=== PATIENT | female | born 1935 | race Caucasian/White ===

== ENCOUNTER 2017-05-18 15:38 | Inpatient (IN) | payer MEDICARE, OTHER ==
[~2017-05-18] VITALS: Ht 165.1 cm; Wt 59.9 kg
[2017-05-18 16:51] LABS: Basophils # (auto) 0 uL; Basophils % (auto) 0.6 % (0.0-2.0); Eosinophils # (auto) 0 uL; Hematocrit 42.1 % (36.0-46.0); Hemoglobin 14.4 g/dL (12.2-16.2); Lymphocytes # (auto) 0.4 uL; Lymphocytes % (auto) 4.6 % (10.0-50.0); Mean Corpuscular Hemoglobin 32.5 pg (28.0-32.0); Mean Corpuscular Hgb Conc. 34.2 g/dL (32.0-36.0); Monocytes # (auto) 0.8 uL; Monocytes % (auto) 10.4 % (0.0-12.0); Neutrophils # (auto) 6.8 uL; Neutrophils % (auto) 84.4 % (37.0-80.0); Platelet Count (auto) 172 10^3/uL (140-450); Red Blood Cells 4.43 10^6/uL (4.0-5.20); Red Cell Distribution Width 14.6 % (11.8-14.3); White Blood Cell 8.1 10^3/uL (4.4-10.8)
[2017-05-18] MEDS ORDERED: ACETAMINOPHEN 325 MG TAB PO ONE ×2 (17:09→17:15)
[2017-05-18] MEDS ORDERED: SODIUM CHLORIDE 0.9% 1,000 ML IV ONE (17:15)
[2017-05-18 17:17] LABS: Alanine Aminotransferase 71 U/L (13-56); Albumin 3.2 g/dL (3.4-5.0); Anion Gap 10 (5-15); Aspartate Aminotransferase 212 U/L (15-37); BUN/Creatinine Ratio 16.9; Blood Urea Nitrogen 13 mg/dL (7-18); Calcium 8.3 mg/dL (8.5-10.1); Carbon Dioxide 26 mmol/L (21-32); Chloride 99 mmol/L (98-107); GFR African American 93 mL/min; GFR Non-African American 77 mL/min; Glucose 102 mg/dL (74-106); Potassium 3.3 mmol/L (3.5-5.1); Sodium 135 mmol/L (136-145)
[2017-05-18 17:22] LABS: Alkaline Phosphatase 60 U/L (45-117); Bilirubin, Total 0.6 mg/dL (0.2-1.0); Total Protein 7.2 g/dL (6.4-8.2)
[2017-05-18] MEDS ORDERED: MEMA28CA PO (17:28)
[2017-05-18] MEDS ORDERED: VALS80TA44 PO (17:28)
[2017-05-18 18:07] LABS: Amylase 84 U/L (25-115); Lipase 134 U/L (73-393)
[2017-05-18 19:05] LABS: Urine Bacteria NONE SEEN /hpf (None Seen); Urine Blood 1+ /uL (Negative); Urine Mucus FEW (None Seen); Urine Specific Gravity 1.018 (1.001-1.035); Urine WBC 1 /hpf (0 - 5)
[2017-05-18] MEDS ORDERED: SODIUM CHLORIDE 0.9% 1,000 ML IV SCH (23:16)
[2017-05-18] MEDS ORDERED: LEVOFLOXACIN 500MG 100 ML IV ONE (23:30)
[2017-05-18] MEDS ORDERED: MORPHINE SULF INJ 2 MG/ML SYRINGE 1ML IV PRN (23:30)
[2017-05-18] MEDS ORDERED: ONDANSETRON HCL 4 MG/2 ML VIAL IV PRN (23:30)
[2017-05-18] MEDS ORDERED: NITROGLYCERIN 0.4 MG SL TAB SL PRN (23:30)
[2017-05-18] MEDS ORDERED: HYDROcodone-ACET 5/325MG TAB PO PRN (23:30)
[2017-05-18] MEDS ORDERED: TEMAZEPAM 15 MG CAP PO PRN (23:30)
[2017-05-19] VITALS (8 sets, daily range): BP systolic 109–133; BP diastolic 62–70
[2017-05-19] MEDS: LEVOTHYROXINE SODIUM 25 MCG TAB PO SCH (06:33)
[2017-05-19] MEDS: ALBUTEROL SULF 2.5 MG/0.5ML(0.5%) NEB SOLN NEB PRN ×2 (06:41→13:38)
[2017-05-19] MEDS: IPRATROPIUM BROM 0.5 MG/2.5ML INH SOL NEB PRN ×2 (06:41→13:38)
[2017-05-19 06:42] LABS: Basophils # (auto) 0 uL; Basophils % (auto) 0.2 % (0.0-2.0); Eosinophils # (auto) 0 uL; Hematocrit 39.4 % (36.0-46.0); Hemoglobin 13.4 g/dL (12.2-16.2); Lymphocytes # (auto) 0.5 uL; Lymphocytes % (auto) 7.6 % (10.0-50.0); Mean Corpuscular Hemoglobin 32.5 pg (28.0-32.0); Mean Corpuscular Volume 95.6 fL (80.0-100.0); Monocytes # (auto) 0.8 uL; Monocytes % (auto) 12.8 % (0.0-12.0); Neutrophils # (auto) 4.8 uL; Neutrophils % (auto) 79.4 % (37.0-80.0); Nucleated Red Blood Cells % 0.3 %; Platelet Count (auto) 161 10^3/uL (140-450); Red Blood Cells 4.12 10^6/uL (4.0-5.20); White Blood Cell 6.1 10^3/uL (4.4-10.8)
[2017-05-19 07:05] LABS: Albumin 2.9 g/dL (3.4-5.0); BUN/Creatinine Ratio 22.7; Calcium 8.4 mg/dL (8.5-10.1); Potassium 3.1 mmol/L (3.5-5.1)
[2017-05-19 07:08] LABS: Bilirubin, Total 0.7 mg/dL (0.2-1.0); Total Protein 6.3 g/dL (6.4-8.2)
[2017-05-19] MEDS ORDERED: LEVO25TA6 PO (07:26)
[2017-05-19] MEDS ORDERED: NAMENDA XR 28MG PO SCH (10:00)
[2017-05-19] MEDS: MEMANTINE HCL 5 MG TAB PO SCH ×2 (10:48→22:30)
[2017-05-19] MEDS: VALSARTAN 80 MG TAB PO SCH (10:49)
[2017-05-19] MEDS: HCTZ 25 MG TAB PO SCH (10:51)
[2017-05-19] MEDS: FAMOTIDINE 20 MG TAB PO SCH ×2 (10:52→22:29)
[2017-05-19] MEDS: ENOXAPARIN SOD 40 MG/0.4 ML SYRINGE SC SCH (10:59)
[2017-05-19] MEDS: ACETAMINOPHEN 325 MG TAB PO PRN (11:19)
[2017-05-19] MEDS ORDERED: IBUPROFEN 400 MG TAB PO PRN (12:15)
[2017-05-19] MEDS ORDERED: POLYETHYLENE GLYCOL 17 GM PWDR PO ONE (13:15)
[2017-05-19] MEDS: POTASSIUM CHL 10% (20 MEQ/15ML) 15ml ORAL SOLN PO SCH ×2 (14:00→15:56)
[2017-05-19] MEDS: ALBUTEROL SULF 2.5 MG/0.5ML(0.5%) NEB SOLN NEB SCH ×2 (18:15→22:50)
[2017-05-19] MEDS ORDERED: LEVOFLOXACIN 500MG 100 ML IV SCH (22:00)
[2017-05-19] MEDS ORDERED: DOCUSATE SOD 100 MG CAP PO SCH (22:00)
[2017-05-19] MEDS ORDERED: POTASSIUM CHL 10% (20 MEQ/15ML) 15ml ORAL SOLN PO SCH (22:00)
[2017-05-19] MEDS: DOCUSATE ORAL LIQUID 100 MG/10 ML UD PO SCH (22:30)
[2017-05-19] MEDS: DONEPEZIL HYDROCHLORIDE 5 MG TAB PO SCH (22:30)
[2017-05-20] MEDS: ALBUTEROL SULF 2.5 MG/0.5ML(0.5%) NEB SOLN NEB SCH ×6 (02:47→22:08)
[2017-05-20] MEDS: IPRATROPIUM BROM 0.5 MG/2.5ML INH SOL NEB PRN (03:02)
[2017-05-20 05:00] VITALS: BP 113/61
[2017-05-20] MEDS: LEVOTHYROXINE SODIUM 25 MCG TAB PO SCH (06:27)
[2017-05-20] MEDS: ACETAMINOPHEN 325 MG TAB PO PRN ×2 (06:38→21:42)
[2017-05-20 07:10] LABS: Basophils # (auto) 0 uL; Basophils % (auto) 0.2 % (0.0-2.0); Eosinophils # (auto) 0 uL; Hematocrit 35.2 % (36.0-46.0); Hemoglobin 11.9 g/dL (12.2-16.2); Lymphocytes # (auto) 0.5 uL; Lymphocytes % (auto) 6.6 % (10.0-50.0); Mean Corpuscular Hemoglobin 32.2 pg (28.0-32.0); Mean Corpuscular Hgb Conc. 33.9 g/dL (32.0-36.0); Monocytes # (auto) 0.5 uL; Monocytes % (auto) 5.7 % (0.0-12.0); Neutrophils # (auto) 6.9 uL; Neutrophils % (auto) 87.5 % (37.0-80.0); Nucleated Red Blood Cells % 0.1 %; Platelet Count (auto) 153 10^3/uL (140-450); Red Cell Distribution Width 14.1 % (11.8-14.3); White Blood Cell 7.9 10^3/uL (4.4-10.8)
[2017-05-20 07:27] LABS: Potassium 3.7 mmol/L (3.5-5.1)
[2017-05-20 07:30] LABS: Calcium 8.2 mg/dL (8.5-10.1); Magnesium 2.1 mg/dL (1.6-2.6)
[2017-05-20 09:17] VITALS: BP 105/61
[2017-05-20] MEDS: DOCUSATE ORAL LIQUID 100 MG/10 ML UD PO SCH ×2 (10:00→21:41)
[2017-05-20] MEDS: VALSARTAN 80 MG TAB PO SCH (10:09)
[2017-05-20] MEDS: HCTZ 25 MG TAB PO SCH (10:11)
[2017-05-20] MEDS: ENOXAPARIN SOD 40 MG/0.4 ML SYRINGE SC SCH (10:12)
[2017-05-20] MEDS: MEMANTINE HCL 5 MG TAB PO SCH ×2 (10:12→21:42)
[2017-05-20] MEDS: FAMOTIDINE 20 MG TAB PO SCH ×2 (10:12→21:42)
[2017-05-20 12:08] VITALS: BP 103/63
[2017-05-20] MEDS ORDERED: POLYETHYLENE GLYCOL 17 GM PWDR PO PRN (13:15)
[2017-05-20] MEDS: OSELTAMIVIR 75 MG CAP PO SCH ×2 (13:42→21:41)
[2017-05-20 17:17] VITALS: BP 109/60
[2017-05-20] MEDS: DONEPEZIL HYDROCHLORIDE 5 MG TAB PO SCH (21:42)
[2017-05-20 22:00] VITALS: BP 111/59
== END 2017-05-20 23:15 | DRG 152 ==
LOC: ER 15:38 → EDBD 15:38 → TELE 15:39 → TELE-EAST 05-19 01:11
PROVIDERS: ADMIT Nurse Practitioner; ATTEND Internal Medicine
DX: J11.1 Influenza due to unidentified influenza virus with other respiratory manifestations (principal); J96.01 Acute respiratory failure with hypoxia; F03.90 Unspecified dementia, unspecified severity, without behavioral disturbance, psychotic disturbance, mood disturbance, and anxiety; J20.9 Acute bronchitis, unspecified; I10 Essential (primary) hypertension; E03.9 Hypothyroidism, unspecified; R53.81 Other malaise; K59.00 Constipation, unspecified; Z82.49 Family history of ischemic heart disease and other diseases of the circulatory system; Z86.73 Personal history of transient ischemic attack (TIA), and cerebral infarction without residual deficits
CPT/HCPCS: 36415; 36600; 51702; 71045; 74176; 80048; 80053; 81001; 82150; 82805; 83605; 83690; 83735; 83880; 84484; 85025; 87040; 87086; 87400; 93005; 94640; 96361; 96365; 97163; J1956

== ENCOUNTER 2017-05-24 14:55 | Inpatient (IN) | payer OTHER ==
[~2017-05-24] VITALS: Ht 165.1 cm; Wt 51.5 kg
[~2017-05-24 14:55] MED LIST: LEVO25TA6 PO; MEMA28CA PO; VALS80TA44 PO
[2017-05-24] MEDS ORDERED: SODIUM CHLORIDE 0.9% 1,000 ML IV ONE (16:30)
[2017-05-24 17:21] LABS: Basophils # (auto) 0.1 uL; Basophils % (auto) 0.4 % (0.0-2.0); Eosinophils # (auto) 0 uL; Hemoglobin 11.9 g/dL (12.2-16.2); Lymphocytes # (auto) 0.8 uL; Lymphocytes % (auto) 5.3 % (10.0-50.0); Mean Corpuscular Hemoglobin 31.4 pg (28.0-32.0); Mean Corpuscular Hgb Conc. 33.2 g/dL (32.0-36.0); Mean Corpuscular Volume 94.8 fL (80.0-100.0); Monocytes # (auto) 1.1 uL; Monocytes % (auto) 7.2 % (0.0-12.0); Neutrophils # (auto) 13.6 uL; Neutrophils % (auto) 87.1 % (37.0-80.0); Platelet Count (auto) 391 10^3/uL (140-450); Red Cell Distribution Width 14.3 % (11.8-14.3); White Blood Cell 15.7 10^3/uL (4.4-10.8)
[2017-05-24 17:44] LABS: Alanine Aminotransferase 27 U/L (13-56); Albumin 2.1 g/dL (3.4-5.0); Alkaline Phosphatase 73 U/L (45-117); Anion Gap 15 (5-15); Aspartate Aminotransferase 24 U/L (15-37); BUN/Creatinine Ratio 28.2; Bilirubin, Total 0.8 mg/dL (0.2-1.0); Blood Urea Nitrogen 22 mg/dL (7-18); Carbon Dioxide 22 mmol/L (21-32); Chloride 102 mmol/L (98-107); GFR African American 91 mL/min; GFR Non-African American 76 mL/min; Glucose 107 mg/dL (74-106); Magnesium 2.2 mg/dL (1.6-2.6); Sodium 139 mmol/L (136-145); Total Protein 6.4 g/dL (6.4-8.2)
[2017-05-24 17:56] LABS: Potassium 2.8 mmol/L (3.5-5.1)
[2017-05-24] MEDS ORDERED: AZITHROMYCIN 500MG/ 250ML 250 ML IV ONE (18:15)
[2017-05-24] MEDS ORDERED: cefTRIAXone 1GM/10ml IVPUSH 10 ML IV ONE (18:15)
[2017-05-24] MEDS ORDERED: POTASSIUM CHL 10% (20 MEQ/15ML) 15ml ORAL SOLN PO ONE (18:30)
[2017-05-24 18:54] LABS: Urine Specific Gravity 1.027 (1.001-1.035)
[2017-05-24 18:55] LABS: Urine Blood 2+ /uL (Negative)
[2017-05-24 19:14] LABS: Alcohol, Urine < 3.0 mg/dL (0-5); Amphetamine Screen, Urine NEGATIVE (NEGATIVE); Barbiturate Scree,Urine NEGATIVE (NEGATIVE); Benzodiazephine Screen, Urine NEGATIVE (NEGATIVE); Cannabinoid Screen, Urine NEGATIVE (NEGATIVE); Cocaine Screen, Urine NEGATIVE (NEGATIVE); Opiate Scree,Urine NEGATIVE (NEGATIVE); Phencyclidine Screen, Urine NEGATIVE (NEGATIVE)
[2017-05-24 19:28] LABS: Urine WBC 5 /hpf (0 - 5); Urine WBC Clumps FEW /hpf (None Seen)
[2017-05-24 19:30] LABS: Urine Bacteria 1+ /hpf (None Seen); Urine Mucus 2+ (None Seen)
[2017-05-24] MEDS ORDERED: HYDROcodone-ACET 5/325MG TAB PO PRN (19:30)
[2017-05-24] MEDS ORDERED: ALUM & MAG HYDROX-SIMETH LIQ(MAALOX) 30 ML PO PRN (19:30)
[2017-05-24] MEDS ORDERED: MORPHINE SULFATE 10 MG/ML INJ 1ML SDV IV PRN ×2 (19:30)
[2017-05-24] MEDS ORDERED: DOCUSATE SOD 100 MG CAP PO PRN (19:30)
[2017-05-24] MEDS ORDERED: LORazepam 0.5 MG TAB PO PRN (19:30)
[2017-05-24] MEDS ORDERED: ACETAMINOPHEN 325 MG TAB PO PRN (19:30)
[2017-05-24] MEDS ORDERED: METOCLOPRAMIDE HCL 5MG/ml INJ 2ml VIAL IV PRN (19:30)
[2017-05-24] MEDS ORDERED: ONDANSETRON HCL 4 MG/2 ML VIAL IV PRN (19:30)
[2017-05-24] MEDS ORDERED: POTASSIUM CHL 20MEQ/50ML 50 ML IV SCH (19:30)
[2017-05-24] MEDS ORDERED: NITROGLYCERIN 0.4 MG SL TAB SL PRN (19:30)
[2017-05-24 19:31] LABS: Urine Hyaline Cast FEW /lpf (0 - 2)
[2017-05-24] MEDS ORDERED: PIPERACILLIN-TAZOB 3.375GM 50 ML IV ONE (19:45)
[2017-05-24] MEDS: SODIUM CHLORIDE 0.9% 1,000 ML IV SCH (21:05)
[2017-05-24] MEDS: POTASSIUM CHL 20MEQ/50ML 50 ML IV SCH ×2 (21:05→22:14)
[2017-05-25 05:25] LABS: Basophils # (auto) 0 uL; Basophils % (auto) 0.3 % (0.0-2.0); Eosinophils # (auto) 0 uL; Eosinophils % (auto) 0.3 % (0.0-7.0); Hematocrit 36.6 % (36.0-46.0); Hemoglobin 12.4 g/dL (12.2-16.2); Lymphocytes # (auto) 0.7 uL; Lymphocytes % (auto) 6.1 % (10.0-50.0); Mean Corpuscular Hemoglobin 31.9 pg (28.0-32.0); Mean Corpuscular Hgb Conc. 33.8 g/dL (32.0-36.0); Mean Corpuscular Volume 94.6 fL (80.0-100.0); Monocytes % (auto) 8.3 % (0.0-12.0); Neutrophils # (auto) 10.1 uL; Platelet Count (auto) 381 10^3/uL (140-450); Red Blood Cells 3.87 10^6/uL (4.0-5.20); Red Cell Distribution Width 14.3 % (11.8-14.3); White Blood Cell 11.9 10^3/uL (4.4-10.8)
[2017-05-25 05:51] LABS: Albumin 1.8 g/dL (3.4-5.0); Bilirubin, Total 0.6 mg/dL (0.2-1.0); Calcium 8.3 mg/dL (8.5-10.1); Potassium 3.2 mmol/L (3.5-5.1); Total Protein 5.9 g/dL (6.4-8.2)
[2017-05-25] MEDS: PIPERACILLIN-TAZOB 3.375GM 50 ML IV SCH ×2 (06:00)
[2017-05-25] MEDS: LEVOTHYROXINE SODIUM 25 MCG TAB PO SCH (06:40)
[2017-05-25] MEDS: POTASSIUM CHL 20MEQ/50ML 50 ML IV SCH ×2 (08:16→09:55)
[2017-05-25] MEDS ORDERED: ALBUTEROL SULF 2.5 MG/0.5ML(0.5%) NEB SOLN NEB PRN (09:15)
[2017-05-25 09:22] VITALS: BP 118/65
[2017-05-25] MEDS ORDERED: MEMANTINE HYDROCHLORIDE 28 MG PO SCH (10:00)
[2017-05-25] MEDS: MEMANTINE HCL 5 MG TAB PO SCH ×2 (10:10→21:28)
[2017-05-25] MEDS: ALBUTEROL SULF 2.5 MG/0.5ML(0.5%) NEB SOLN NEB SCH ×2 (11:30→18:15)
[2017-05-25] MEDS: IPRATROPIUM BROM 0.5 MG/2.5ML INH SOL NEB SCH ×2 (11:30→18:15)
[2017-05-25] MEDS ORDERED: VANCOMYCIN 1GM/250ML 250 ML IV ONE (11:45)
[2017-05-25] MEDS ORDERED: VANCOMYCIN PER PHARMACY 0 MG IV SCH (11:45)
[2017-05-25] MEDS: SODIUM CHLORIDE 0.9% 1,000 ML IV SCH (12:02)
[2017-05-25] MEDS ORDERED: hydrALAZINE HCL 20 MG/ML VL IV PRN (12:15)
[2017-05-25] MEDS: CEFEPIME HYDROCHLORIDE 2 GM in SODIUM CHL 0.9% 50 ML IV SCH (14:20)
[2017-05-26] MEDS: IPRATROPIUM BROM 0.5 MG/2.5ML INH SOL NEB SCH ×4 (00:40→18:15)
[2017-05-26] MEDS: ALBUTEROL SULF 2.5 MG/0.5ML(0.5%) NEB SOLN NEB SCH ×4 (00:40→18:15)
[2017-05-26] MEDS: CEFEPIME HYDROCHLORIDE 2 GM in SODIUM CHL 0.9% 50 ML IV SCH ×2 (02:00→14:42)
[2017-05-26] MEDS: SODIUM CHLORIDE 0.9% 1,000 ML IV SCH ×2 (04:42→21:16)
[2017-05-26 05:22] LABS: Basophils # (auto) 0 uL; Basophils % (auto) 0.3 % (0.0-2.0); Eosinophils # (auto) 0 uL; Eosinophils % (auto) 0.2 % (0.0-7.0); Hemoglobin 10.8 g/dL (12.2-16.2); Lymphocytes # (auto) 0.9 uL; Lymphocytes % (auto) 5.6 % (10.0-50.0); Mean Corpuscular Hemoglobin 31.7 pg (28.0-32.0); Mean Corpuscular Hgb Conc. 33.7 g/dL (32.0-36.0); Mean Corpuscular Volume 94.1 fL (80.0-100.0); Monocytes # (auto) 0.9 uL; Monocytes % (auto) 5.8 % (0.0-12.0); Neutrophils # (auto) 13.4 uL; Neutrophils % (auto) 88.1 % (37.0-80.0); Platelet Count (auto) 351 10^3/uL (140-450); Red Cell Distribution Width 14.2 % (11.8-14.3); White Blood Cell 15.3 10^3/uL (4.4-10.8)
[2017-05-26 05:44] LABS: BUN/Creatinine Ratio 37.2; Calcium 8.3 mg/dL (8.5-10.1); Magnesium 2.3 mg/dL (1.6-2.6); Potassium 3.3 mmol/L (3.5-5.1)
[2017-05-26] MEDS: LEVOTHYROXINE SODIUM 25 MCG TAB PO SCH (07:12)
[2017-05-26] MEDS ORDERED: POTASSIUM CHL 10% (20 MEQ/15ML) 15ml ORAL SOLN PO ONE (07:15)
[2017-05-26] MEDS: MEMANTINE HCL 5 MG TAB PO SCH ×2 (09:24→21:16)
[2017-05-26] MEDS ORDERED: POTASSIUM CHL 20 Meq TABLET PO ONE (10:00)
[2017-05-26] MEDS: VANCOMYCIN 1GM/250ML 250 ML IV SCH (12:17)
[2017-05-26 21:07] VITALS: BP 137/70
[2017-05-27 00:23] VITALS: BP 145/85
[2017-05-27] MEDS: ALBUTEROL SULF 2.5 MG/0.5ML(0.5%) NEB SOLN NEB SCH ×4 (00:50→18:43)
[2017-05-27] MEDS: IPRATROPIUM BROM 0.5 MG/2.5ML INH SOL NEB SCH ×4 (00:50→18:43)
[2017-05-27] MEDS: CEFEPIME HYDROCHLORIDE IV SCH ×2 (01:33→15:22)
[2017-05-27] MEDS: SODIUM CHL 0.9% IV SCH ×2 (01:33→15:22)
[2017-05-27 05:51] LABS: Basophils # (auto) 0 uL; Basophils % (auto) 0.1 % (0.0-2.0); Eosinophils # (auto) 0.1 uL; Eosinophils % (auto) 0.8 % (0.0-7.0); Hemoglobin 10.7 g/dL (12.2-16.2); Lymphocytes # (auto) 0.6 uL; Lymphocytes % (auto) 4.8 % (10.0-50.0); Mean Corpuscular Hemoglobin 31.5 pg (28.0-32.0); Mean Corpuscular Hgb Conc. 33.6 g/dL (32.0-36.0); Mean Corpuscular Volume 93.9 fL (80.0-100.0); Monocytes % (auto) 7.4 % (0.0-12.0); Neutrophils # (auto) 11.5 uL; Neutrophils % (auto) 86.9 % (37.0-80.0); Platelet Count (auto) 315 10^3/uL (140-450); Red Blood Cells 3.41 10^6/uL (4.0-5.20); Red Cell Distribution Width 14.1 % (11.8-14.3); White Blood Cell 13.2 10^3/uL (4.4-10.8)
[2017-05-27 06:06] LABS: BUN/Creatinine Ratio 29.3; Calcium 8.2 mg/dL (8.5-10.1); Magnesium 2.1 mg/dL (1.6-2.6); Potassium 3.2 mmol/L (3.5-5.1)
[2017-05-27] MEDS: LEVOTHYROXINE SODIUM 25 MCG TAB PO SCH (06:13)
[2017-05-27] MEDS: MEMANTINE HCL 5 MG TAB PO SCH ×2 (10:46→21:14)
[2017-05-27] MEDS ORDERED: POTASSIUM CHL 20 Meq TABLET PO ONE (11:45)
[2017-05-27 11:54] VITALS: BP 131/74
[2017-05-27] MEDS: VANCOMYCIN 1GM/250ML 250 ML IV SCH (12:19)
[2017-05-27] MEDS: SODIUM CHLORIDE 0.9% 1,000 ML IV SCH (15:22)
[2017-05-27 15:53] VITALS: BP 130/71
[2017-05-27 16:11] LABS: BUN/Creatinine Ratio 30.3; Calcium 8.4 mg/dL (8.5-10.1)
[2017-05-27 19:50] VITALS: BP 135/76
[2017-05-27 23:48] VITALS: BP 138/81
[2017-05-28] MEDS: IPRATROPIUM BROM 0.5 MG/2.5ML INH SOL NEB SCH ×5 (00:37→23:58)
[2017-05-28] MEDS: ALBUTEROL SULF 2.5 MG/0.5ML(0.5%) NEB SOLN NEB SCH ×5 (00:37→23:57)
[2017-05-28] MEDS: SODIUM CHL 0.9% IV SCH ×2 (01:05→15:16)
[2017-05-28] MEDS: CEFEPIME HYDROCHLORIDE IV SCH ×2 (01:05→15:16)
[2017-05-28 04:16] VITALS: BP 145/84
[2017-05-28 05:43] LABS: Hematocrit 32.1 % (36.0-46.0); Hemoglobin 10.5 g/dL (12.2-16.2); Mean Corpuscular Hemoglobin 30.7 pg (28.0-32.0); Mean Corpuscular Hgb Conc. 32.8 g/dL (32.0-36.0); Mean Corpuscular Volume 93.7 fL (80.0-100.0); Platelet Count (auto) 325 10^3/uL (140-450); Red Blood Cells 3.43 10^6/uL (4.0-5.20); White Blood Cell 13.1 10^3/uL (4.4-10.8)
[2017-05-28 05:55] LABS: Basophils % (manual) 0 (0.0-2.0); Blast Cells 0; Metamyelocytes % 0; Myelocytes % 0; Promyelocytes % 0; Reactive Lymphocytes 0
[2017-05-28 06:00] LABS: BUN/Creatinine Ratio 24.2; Calcium 8.2 mg/dL (8.5-10.1); Magnesium 1.9 mg/dL (1.6-2.6)
[2017-05-28 06:06] LABS: Potassium 2.9 mmol/L (3.5-5.1)
[2017-05-28] MEDS: LEVOTHYROXINE SODIUM 25 MCG TAB PO SCH (06:06)
[2017-05-28] MEDS ORDERED: POTASSIUM CHL 20 Meq TABLET PO ONE (06:30)
[2017-05-28] MEDS ORDERED: POTASSIUM CHL 20MEQ/50ML 50 ML IV ONE ×3 (06:30→09:00)
[2017-05-28] MEDS: SODIUM CHLORIDE 0.9% 1,000 ML IV SCH (06:53)
[2017-05-28 07:34] LABS: Band Neutrophils % (manual) 3; Eosinophils % (manual) 1 (0-7); Lymphocytes % (manual) 5 (10.0-50.0); Monocytes % (manual) 5 (0-12)
[2017-05-28] MEDS: MAGNESIUM SULFATE 1GM/100ML 100 ML IV SCH ×2 (08:46→10:19)
[2017-05-28] MEDS: FUROSEMIDE 20 MG/2 ML VIAL IV SCH (10:27)
[2017-05-28] MEDS: MEMANTINE HCL 5 MG TAB PO SCH ×2 (10:27→22:54)
[2017-05-28 10:50] VITALS: BP 118/62
[2017-05-28 11:50] VITALS: BP 134/80
[2017-05-28 12:38] LABS: Magnesium 2.9 mg/dL (1.6-2.6); Potassium 3.3 mmol/L (3.5-5.1)
[2017-05-28] MEDS: VANCOMYCIN 1GM/250ML 250 ML IV SCH (13:24)
[2017-05-28 15:50] VITALS: BP 118/69
[2017-05-28 19:53] VITALS: BP 106/58
[2017-05-28] MEDS: VANCOMYCIN 750 MG in D5W 5% 250 ML IV SCH (23:50)
[2017-05-29] VITALS: BP 118/67
[2017-05-29] MEDS: CEFEPIME HYDROCHLORIDE IV SCH ×2 (02:25→15:20)
[2017-05-29] MEDS: SODIUM CHL 0.9% IV SCH ×2 (02:25→15:20)
[2017-05-29 04:29] VITALS: BP 116/65
[2017-05-29 05:25] LABS: Hemoglobin 10.8 g/dL (12.2-16.2); Mean Corpuscular Hemoglobin 31.7 pg (28.0-32.0); Mean Corpuscular Hgb Conc. 33.7 g/dL (32.0-36.0); Mean Corpuscular Volume 94.2 fL (80.0-100.0); Platelet Count (auto) 343 10^3/uL (140-450); White Blood Cell 12.9 10^3/uL (4.4-10.8)
[2017-05-29 05:36] LABS: BUN/Creatinine Ratio 22.4; Calcium 8.5 mg/dL (8.5-10.1); Magnesium 2.4 mg/dL (1.6-2.6); Phosphorus 2.8 mg/dL (2.5-4.90); Potassium 3.3 mmol/L (3.5-5.1)
[2017-05-29] MEDS: IPRATROPIUM BROM 0.5 MG/2.5ML INH SOL NEB SCH ×3 (06:22→19:15)
[2017-05-29] MEDS: ALBUTEROL SULF 2.5 MG/0.5ML(0.5%) NEB SOLN NEB SCH ×3 (06:22→19:15)
[2017-05-29 06:30] LABS: Basophils % (manual) 0 (0.0-2.0); Blast Cells 0; Metamyelocytes % 0; Myelocytes % 0; Promyelocytes % 0; Reactive Lymphocytes 0
[2017-05-29] MEDS: LEVOTHYROXINE SODIUM 25 MCG TAB PO SCH (06:41)
[2017-05-29] MEDS: FUROSEMIDE 20 MG/2 ML VIAL IV SCH (10:16)
[2017-05-29] MEDS: MEMANTINE HCL 5 MG TAB PO SCH ×2 (10:16→21:43)
[2017-05-29 10:26] LABS: Band Neutrophils % (manual) 3; Eosinophils % (manual) 2 (0-7); Lymphocytes % (manual) 3 (10.0-50.0); Monocytes % (manual) 10 (0-12)
[2017-05-29 11:59] VITALS: BP 112/75
[2017-05-29] MEDS: VANCOMYCIN 750 MG in D5W 5% 250 ML IV SCH ×2 (12:00→23:16)
[2017-05-29] MEDS ORDERED: LEVOFLOXACIN 500 MG TAB PO ONE (12:30)
[2017-05-29 15:47] VITALS: BP 133/79
[2017-05-29 19:56] VITALS: BP 125/70
[2017-05-30 00:01] VITALS: BP 111/65
[2017-05-30] MEDS: IPRATROPIUM BROM 0.5 MG/2.5ML INH SOL NEB SCH ×5 (00:32→23:53)
[2017-05-30] MEDS: ALBUTEROL SULF 2.5 MG/0.5ML(0.5%) NEB SOLN NEB SCH ×5 (00:32→23:53)
[2017-05-30] MEDS: SODIUM CHL 0.9% IV SCH ×2 (01:25→13:53)
[2017-05-30] MEDS: CEFEPIME HYDROCHLORIDE IV SCH ×2 (01:25→13:53)
[2017-05-30 04:00] VITALS: BP 99/60
[2017-05-30 06:25] LABS: Potassium 3.5 mmol/L (3.5-5.1)
[2017-05-30 06:28] LABS: BUN/Creatinine Ratio 37.5
[2017-05-30 06:30] LABS: Bilirubin, Total 0.6 mg/dL (0.2-1.0); Total Protein 6.6 g/dL (6.4-8.2)
[2017-05-30] MEDS: LEVOTHYROXINE SODIUM 25 MCG TAB PO SCH (06:35)
[2017-05-30 08:00] VITALS: BP 112/70
[2017-05-30] MEDS: FUROSEMIDE 20 MG/2 ML VIAL IV SCH (10:32)
[2017-05-30] MEDS: MEMANTINE HCL 5 MG TAB PO SCH ×2 (10:32→21:16)
[2017-05-30 11:46] VITALS: BP 88/55
[2017-05-30] MEDS: VANCOMYCIN 750 MG in D5W 5% 250 ML IV SCH ×2 (12:14→23:03)
[2017-05-30 15:43] VITALS: BP 108/68
[2017-05-30 20:24] VITALS: BP 86/58
[2017-05-31] MEDS: CEFEPIME HYDROCHLORIDE IV SCH ×2 (01:30→14:20)
[2017-05-31] MEDS: SODIUM CHL 0.9% IV SCH ×2 (01:30→14:20)
[2017-05-31 04:15] VITALS: BP 111/60
[2017-05-31] MEDS: ALBUTEROL SULF 2.5 MG/0.5ML(0.5%) NEB SOLN NEB SCH ×3 (05:55→18:27)
[2017-05-31] MEDS: IPRATROPIUM BROM 0.5 MG/2.5ML INH SOL NEB SCH ×3 (05:55→18:27)
[2017-05-31] MEDS: LEVOTHYROXINE SODIUM 25 MCG TAB PO SCH (06:14)
[2017-05-31 06:55] LABS: Mean Corpuscular Hemoglobin 31.6 pg (28.0-32.0); Mean Corpuscular Hgb Conc. 33.3 g/dL (32.0-36.0); Mean Corpuscular Volume 94.7 fL (80.0-100.0); Platelet Count (auto) 349 10^3/uL (140-450); Red Blood Cells 3.48 10^6/uL (4.0-5.20); Red Cell Distribution Width 14.5 % (11.8-14.3); White Blood Cell 11.1 10^3/uL (4.4-10.8)
[2017-05-31 07:07] LABS: Calcium 8.7 mg/dL (8.5-10.1); Magnesium 2.3 mg/dL (1.6-2.6); Phosphorus 2.5 mg/dL (2.5-4.90); Potassium 3.4 mmol/L (3.5-5.1)
[2017-05-31 07:20] LABS: Basophils % (manual) 0 (0.0-2.0); Blast Cells 0; Metamyelocytes % 0; Myelocytes % 0; Promyelocytes % 0; Reactive Lymphocytes 0
[2017-05-31 08:00] VITALS: BP 126/75
[2017-05-31 09:12] VITALS: BP 126/75
[2017-05-31] MEDS: MEMANTINE HCL 5 MG TAB PO SCH ×2 (09:28→21:39)
[2017-05-31] MEDS ORDERED: POTASSIUM CHL 20 Meq TABLET PO ONE (11:45)
[2017-05-31 11:50] VITALS: BP 112/66
[2017-05-31 11:51] LABS: Band Neutrophils % (manual) 1; Eosinophils % (manual) 2 (0-7); Lymphocytes % (manual) 7 (10.0-50.0); Monocytes % (manual) 7 (0-12)
[2017-05-31] MEDS: VANCOMYCIN 750 MG in D5W 5% 250 ML IV SCH (12:11)
[2017-05-31 15:52] VITALS: BP 135/77
[2017-05-31 19:53] VITALS: BP 141/70
[2017-06-01] VITALS: BP 115/60
[2017-06-01] MEDS: IPRATROPIUM BROM 0.5 MG/2.5ML INH SOL NEB SCH ×3 (00:23→11:45)
[2017-06-01] MEDS: ALBUTEROL SULF 2.5 MG/0.5ML(0.5%) NEB SOLN NEB SCH ×3 (00:23→11:45)
[2017-06-01] MEDS: SODIUM CHL 0.9% IV SCH ×2 (02:00→14:00)
[2017-06-01] MEDS: CEFEPIME HYDROCHLORIDE IV SCH ×2 (02:00→14:00)
[2017-06-01 04:00] VITALS: BP_SYST 125
[2017-06-01 05:25] LABS: Hemoglobin 10.8 g/dL (12.2-16.2); Mean Corpuscular Hemoglobin 31.9 pg (28.0-32.0); Mean Corpuscular Hgb Conc. 33.9 g/dL (32.0-36.0); Mean Corpuscular Volume 94.1 fL (80.0-100.0); Platelet Count (auto) 355 10^3/uL (140-450); Red Cell Distribution Width 13.9 % (11.8-14.3); White Blood Cell 9.9 10^3/uL (4.4-10.8)
[2017-06-01 05:26] LABS: BUN/Creatinine Ratio 31.9; Calcium 8.7 mg/dL (8.5-10.1); Potassium 3.5 mmol/L (3.5-5.1)
[2017-06-01 05:48] LABS: Basophils % (manual) 0 (0.0-2.0); Blast Cells 0; Eosinophils % (manual) 0 (0-7); Metamyelocytes % 0; Myelocytes % 0; Promyelocytes % 0; Reactive Lymphocytes 0
[2017-06-01 06:22] LABS: Band Neutrophils % (manual) 5; Lymphocytes % (manual) 3 (10.0-50.0); Monocytes % (manual) 10 (0-12)
[2017-06-01] MEDS: LEVOTHYROXINE SODIUM 25 MCG TAB PO SCH (07:00)
[2017-06-01 08:00] VITALS: BP 129/75
[2017-06-01] MEDS: MEMANTINE HCL 5 MG TAB PO SCH (10:09)
[2017-06-01 11:50] VITALS: BP 122/87
[2017-06-01] MEDS ORDERED: VANCOMYCIN 750 MG in D5W 5% 250 ML IV SCH ×3 (15:00)
[2017-06-01 15:29] VITALS: BP 123/71
[2017-06-01 15:35] VITALS: BP 123/71
== END 2017-06-01 16:45 | disposition home health service (06) | DRG 871 ==
LOC: EDUNIT# 14:55 → ER 14:55 → OVERFLOW 14:56 → DOU IN ICU 05-26 20:08
PROVIDERS: ADMIT Internal Medicine; ATTEND Internal Medicine
DX: A41.9 Sepsis, unspecified organism (principal); J18.9 Pneumonia, unspecified organism; J96.01 Acute respiratory failure with hypoxia; E43 Unspecified severe protein-calorie malnutrition; I11.0 Hypertensive heart disease with heart failure; G93.41 Metabolic encephalopathy; E87.5 Hyperkalemia; G30.9 Alzheimer's disease, unspecified; I50.9 Heart failure, unspecified; F02.80 Dementia in other diseases classified elsewhere, unspecified severity, without behavioral disturbance, psychotic disturbance, mood disturbance, and anxiety; J98.19 Other pulmonary collapse; Z68.1 Body mass index [BMI] 19.9 or less, adult; E03.9 Hypothyroidism, unspecified; E83.42 Hypomagnesemia; E87.6 Hypokalemia; I70.0 Atherosclerosis of aorta; J01.30 Acute sphenoidal sinusitis, unspecified; J44.9 Chronic obstructive pulmonary disease, unspecified; Y95 Nosocomial condition; Z82.49 Family history of ischemic heart disease and other diseases of the circulatory system; Z86.73 Personal history of transient ischemic attack (TIA), and cerebral infarction without residual deficits; Z79.899 Other long term (current) drug therapy
CPT/HCPCS: 36415; 70450; 71045; 71250; 80048; 80053; 80202; 80307; 81001; 83605; 83735; 84100; 84132; 84146; 84443; 84484; 85007; 85025; 85027; 87040; 87081; 87086; 87400; 93005; 93306; 94640; 94761; 96361; 96365; 96367; 96375; 97110; 97116; 97163; 97530; J2543; J7060

== ENCOUNTER 2017-06-25 17:57 | Inpatient (IN) | payer OTHER ==
[~2017-06-25] VITALS: Ht 167.6 cm; Wt 45.8 kg
[2017-06-25] MEDS ORDERED: SODIUM CHLORIDE 0.9% 1,000 ML IVB ONE ×2 (19:06→19:43)
[2017-06-25 19:15] LABS: Basophils # (auto) 0.1 uL; Basophils % (auto) 0.7 % (0.0-2.0); Eosinophils # (auto) 0 uL; Hematocrit 43.6 % (36.0-46.0); Hemoglobin 14.3 g/dL (12.2-16.2); Lymphocytes # (auto) 0.9 uL; Lymphocytes % (auto) 4.7 % (10.0-50.0); Mean Corpuscular Hemoglobin 31.2 pg (28.0-32.0); Mean Corpuscular Hgb Conc. 32.9 g/dL (32.0-36.0); Mean Corpuscular Volume 94.8 fL (80.0-100.0); Monocytes # (auto) 1.7 uL; Monocytes % (auto) 8.3 % (0.0-12.0); Neutrophils # (auto) 17.4 uL; Neutrophils % (auto) 86.3 % (37.0-80.0); Nucleated Red Blood Cells % 0.1 %; Platelet Count (auto) 253 10^3/uL (140-450); Red Cell Distribution Width 15.2 % (11.8-14.3); White Blood Cell 20.2 10^3/uL (4.4-10.8)
[2017-06-25 19:20] LABS: Alanine Aminotransferase 13 U/L (13-56); Albumin 2.8 g/dL (3.4-5.0); Anion Gap 14 (5-15); Aspartate Aminotransferase 20 U/L (15-37); BUN/Creatinine Ratio 32.2; Blood Urea Nitrogen 28 mg/dL (7-18); Calcium 9.2 mg/dL (8.5-10.1); Carbon Dioxide 22 mmol/L (21-32); Chloride 107 mmol/L (98-107); GFR African American 81 mL/min; GFR Non-African American 67 mL/min; Glucose 135 mg/dL (74-106); Potassium 3.7 mmol/L (3.5-5.1); Sodium 143 mmol/L (136-145)
[2017-06-25 19:23] LABS: Alkaline Phosphatase 80 U/L (45-117); Total Protein 7.1 g/dL (6.4-8.2)
[2017-06-25] MEDS ORDERED: cefTRIAXone 1GM/10ml IVPUSH 10 ML IV ONE (19:45)
[2017-06-25 19:52] LABS: Lactic Acid w/Reflex 2.1 mmol/L (0.4-2.0)
[2017-06-25] MEDS ORDERED: AZITHROMYCIN 500MG/ 250ML 250 ML IV ONE (20:45)
[2017-06-25] MEDS ORDERED: SODIUM CHLORIDE 0.9% 500 ML IV ONE (21:00)
[2017-06-25] MEDS ORDERED: SODIUM CHLORIDE 0.9% 1,000 ML IV ONE (21:00)
[2017-06-25] MEDS ORDERED: NITROGLYCERIN 0.4 MG SL TAB SL PRN (21:15)
[2017-06-25] MEDS ORDERED: ONDANSETRON HCL 4 MG/2 ML VIAL IV PRN (21:15)
[2017-06-25] MEDS ORDERED: TEMAZEPAM 15 MG CAP PO PRN (21:15)
[2017-06-25] MEDS ORDERED: MORPHINE SULFATE 4 MG/ML SYR/VIAL IV PRN (21:15)
[2017-06-25] MEDS ORDERED: ACETAMINOPHEN 325 MG TAB PO PRN (21:15)
[2017-06-25] MEDS ORDERED: DOCUSATE SOD 100 MG CAP PO PRN (21:15)
[2017-06-25] MEDS ORDERED: HYDROcodone-ACET 5/325MG TAB PO PRN (21:15)
[2017-06-25] MEDS ORDERED: SODIUM CHLORIDE 0.9% 1,000 ML IV SCH (21:15)
[2017-06-25 21:43] LABS: INR 1.09 (0.9-1.15); Partial Thromboplastin Time 27.5 sec (22.64-33.71); Prothrombin Time 11.9 sec (9.37-12.3)
[2017-06-25] MEDS: FAMOTIDINE 20 MG TAB PO SCH (22:00)
[2017-06-25] MEDS: MEMANTINE HCL 5 MG TAB PO SCH (22:00)
[2017-06-25] MEDS ORDERED: DONEPEZIL HYDROCHLORIDE 5 MG TAB PO SCH (22:00)
[2017-06-25 22:35] LABS: Urine Bacteria NONE SEEN /hpf (None Seen); Urine Blood Negative /uL (Negative); Urine Hyaline Cast FEW /lpf (0 - 2); Urine Mucus FEW (None Seen); Urine Specific Gravity 1.029 (1.001-1.035); Urine WBC 2 /hpf (0 - 5)
[2017-06-26] VITALS (7 sets, daily range): BP systolic 94–117; BP diastolic 54–65
[2017-06-26 06:18] LABS: Basophils # (auto) 0 uL; Basophils % (auto) 0.2 % (0.0-2.0); Eosinophils # (auto) 0 uL; Eosinophils % (auto) 0.1 % (0.0-7.0); Hematocrit 30.7 % (36.0-46.0); Hemoglobin 10.2 g/dL (12.2-16.2); Lymphocytes # (auto) 0.6 uL; Lymphocytes % (auto) 3.7 % (10.0-50.0); Mean Corpuscular Hemoglobin 31.8 pg (28.0-32.0); Mean Corpuscular Hgb Conc. 33.4 g/dL (32.0-36.0); Mean Corpuscular Volume 95.1 fL (80.0-100.0); Monocytes # (auto) 1.3 uL; Monocytes % (auto) 8.2 % (0.0-12.0); Neutrophils # (auto) 13.5 uL; Neutrophils % (auto) 87.8 % (37.0-80.0); Platelet Count (auto) 185 10^3/uL (140-450); Red Blood Cells 3.23 10^6/uL (4.0-5.20); Red Cell Distribution Width 15.6 % (11.8-14.3); White Blood Cell 15.4 10^3/uL (4.4-10.8)
[2017-06-26 06:50] LABS: Albumin 1.9 g/dL (3.4-5.0); Calcium 7.5 mg/dL (8.5-10.1)
[2017-06-26 06:52] LABS: BUN/Creatinine Ratio 53.5
[2017-06-26 06:54] LABS: Bilirubin, Total 0.6 mg/dL (0.2-1.0)
[2017-06-26] MEDS ORDERED: LEVOTHYROXINE SODIUM 25 MCG TAB PO SCH (07:00)
[2017-06-26 07:03] LABS: Potassium 2.8 mmol/L (3.5-5.1)
[2017-06-26] MEDS ORDERED: POTASSIUM CHL 20 Meq TABLET PO ONE (07:30)
[2017-06-26] MEDS ORDERED: SOD CHL 0.9%/ KCL 40MEQ 1,000 ML IV ONE (07:45)
[2017-06-26] MEDS ORDERED: cefTRIAXone 1GM/10ml IVPUSH 10 ML IV SCH (09:00)
[2017-06-26] MEDS: FAMOTIDINE 20 MG TAB PO SCH (09:23)
[2017-06-26] MEDS: MEMANTINE HCL 5 MG TAB PO SCH (09:23)
[2017-06-26] MEDS ORDERED: ENOXAPARIN SOD 30 MG/0.3 ML SYRINGE SC SCH (10:00)
[2017-06-26] MEDS ORDERED: HCTZ 25 MG TAB PO SCH (10:00)
[2017-06-26] MEDS ORDERED: AZITHROMYCIN 500MG/ 250ML 250 ML IV SCH (10:00)
[2017-06-26] MEDS ORDERED: VALSARTAN 80 MG TAB PO SCH (10:00)
[2017-06-26] MEDS ORDERED: POTASSIUM CHLORIDE 40 MEQ, LIDOCAINE 1% (LOCAL ANESTH.) 4 ML in SODIUM CHL 0.9% 100 ML IV ONE (12:45)
[2017-06-26] MEDS ORDERED: CEPHALEXIN 250 MG CAP PO SCH (18:00)
== END 2017-06-26 19:28 | disposition hospice, home (50) | DRG 884 ==
LOC: EDBD 17:57 → ER 17:57 → TELE 17:58 → TELE-WESTW 23:17
PROVIDERS: ADMIT Nurse Practitioner; ATTEND Hospitalist
DX: F03.90 Unspecified dementia, unspecified severity, without behavioral disturbance, psychotic disturbance, mood disturbance, and anxiety (principal); G93.41 Metabolic encephalopathy; J18.9 Pneumonia, unspecified organism; R64 Cachexia; I10 Essential (primary) hypertension; R62.7 Adult failure to thrive; Z74.01 Bed confinement status; Z82.49 Family history of ischemic heart disease and other diseases of the circulatory system; Z86.73 Personal history of transient ischemic attack (TIA), and cerebral infarction without residual deficits; Z87.01 Personal history of pneumonia (recurrent)
CPT/HCPCS: 36415; 51702; 70450; 71045; 80053; 80320; 81001; 83605; 83735; 84484; 85025; 85610; 85730; 87040; 87081; 92610; 96361; 96365; 96375; 99291; J2001